=== PATIENT | male | born 1955 | race Caucasian/White ===

== ENCOUNTER 2019-09-21 08:15 | Emergency (ER) | payer BC, MEDICARE ==
[2019-09-21 08:33] VITALS: BP 142/78
--- NOTE | 2019-09-21 08:40 | UC ---
Dental HPI - HPI Summary HPI Summary: 64-year-old male who had a toothache over the past 2 days and awakened with some right-sided jaw swelling and pain which is manageable with Advil. He denies any fever or chills. He states that he does have a dentist whom he sees regularly. - History of Current Complaint Chief Complaint: UCDentalProblem Stated Complaint: SKIN COMPLAINT ON CHEEK Time Seen by Provider: 09/21/19 08:18 Hx Obtained From: Patient Onset/Duration: Gradual Onset, Lasting Days Severity: Moderate Pain Intensity: 7 Aggravating Factor(s): Chewing Alleviating Factor(s): OTC Meds Related History: Swelling - Patient awakened with right upper jaw swelling - Allergies/Home Medications Allergies/Adverse Reactions: Allergies Allergy/AdvReac Type Severity Reaction Status Date / Time No Known Allergies Allergy Verified 09/21/19 08:21 Home Medications: Home Medications Lisinopril TAB* [Prinivil TAB*] 10 mg PO DAILY 03/01/13 [History Confirmed 09/20] Clindamycin Cap(NF) [Clindamycin Cap 300 mg Cap(NF)] 300 mg PO TID 10 Days #30 cap 09/21/19 [Rx] Famotidine TAB* [Pepcid 20 MG TAB*] 40 mg PO DAILY 09/21/19 [History Confirmed 09/21/19] Ibuprofen TAB* [Advil TAB*] 400 mg PO Q6H PRN 09/21/19 [History Confirmed ] Ibuprofen TAB* [Motrin TAB* 600 MG] 600 mg PO Q8H PRN #21 tab 09/21/19 [Rx] PMH/Surg Hx/FS Hx/Imm Hx Previously Healthy: Yes Cardiovascular History: Hypertension GI/ History: Gastroesophageal Reflux - Surgical History Surgical History: None - Family History Known Family History: Positive: Unknown - Social History Lives: With Family Alcohol Use: Occasionally Substance Use Type: None Smoking Status (MU): Never Smoked Tobacco - Immunization History Most Recent Tetanus Shot: within last 5 years Review of Systems All Other Systems Reviewed And Are Negative: Yes ENT: Positive: Dental Pain - Toothache right upper teeth over the past couple of days with some right upper jaw swelling today. Is Patient Immunocompromised?: No Physical Exam Triage Information Reviewed: Yes Appearance: Well-Appearing, No Pain Distress, Well-Nourished Vital Signs: Initial Vital Signs Temp 97.7 F 09/21/19 08:23 Pulse 80 09/21/19 08:23 Resp 16 09/21/19 08:23 BP 142/78 09/21/19 08:23 Pulse Ox 98 09/21/19 08:23 Vital Signs Reviewed: Yes Eyes: Positive: Conjunctiva Clear ENT: Positive: Hearing grossly normal, Pharynx normal, TMs normal, Uvula midline Dental: Positive: Other: - Right upper molars are nontender on firm palpation however the gum is fairly swollen, no erythema, no drainage, no evidence of dental abscess. Neck: Positive: Supple, Nontender, No Lymphadenopathy Respiratory: Positive: Lungs clear, Normal breath sounds, No respiratory distress, No accessory muscle use Cardiovascular: Positive: RRR, No Murmur, Pulses Normal, Brisk Capillary Refill Musculoskeletal Exam: Normal Neurological Exam: Normal Psychological Exam: Normal Skin Exam: Normal Skin: Positive: Other - See above notes. Dental Complaint Course/Dx - Course Course Of Treatment: The patient is comfortable here and states that his pain is managed with Advil. I'm giving a prescription for Motrin as well as an antibiotic. He's to call his dentist on Monday and make an appointment to be seen if he has no improvement. If he has any worsening symptoms he is to go to the emergency room. - Differential Dx/Diagnosis Provider Diagnosis: Toothache Discharge ED - Sign-Out/Discharge Documenting (check all that apply): Patient Departure All imaging exams completed and their final reports reviewed: No Studies - Discharge Plan Condition: Good Disposition: HOME Prescriptions: Clindamycin Cap(NF) [Clindamycin Cap 300 mg Cap(NF)] 300 mg PO TID 10 Days #30 cap Ibuprofen TAB* [Motrin TAB* 600 MG] 600 mg PO Q8H PRN #21 tab PRN Reason: Pain - Mild Patient Education Materials: Toothache (ED) Referrals: John Mon MD [Primary Care Provider] - Additional Instructions: He may alternate Tylenol every 4 hours with Motrin every 8 hours. Take the Motrin with food. Call your dentist on Monday and make an appointment to be rechecked if no improvement. If you develop fever, chills, increased facial swelling, difficulty breathing, talking or difficulty swallowing you are to go to the emergency room for further treatment. - Billing Disposition and Condition Condition: GOOD Disposition: Home
== END 2019-09-21 08:55 | disposition home or self-care (01) ==
LOC: UCCORT 08:15
DX: K08.89 Other specified disorders of teeth and supporting structures (principal); I10 Essential (primary) hypertension; K21.9 Gastro-esophageal reflux disease without esophagitis; Z79.899 Other long term (current) drug therapy
CPT/HCPCS: 99212; G0463